=== PATIENT | male | born 1955 | race Caucasian/White ===

== ENCOUNTER 2018-10-07 10:11 | Inpatient (IN) | payer MEDICAID ==
[~2018-10-07] VITALS: Ht 172.7 cm; Wt 72.7 kg
[2018-10-07] VITALS (8 sets, daily range): BP systolic 101–139; BP diastolic 67–89
[2018-10-07 10:59] LABS: BASOPHILS % (AUTO) 0.5 % (0-1); EOSINOPHILS % (AUTO) 0.6 % (0-6); HEMATOCRIT 41.8 % (42.0-52.0); HEMOGLOBIN 14.2 g/dl (14.0-17.9); LYMPHOCYTES % (AUTO) 19.9 % (21-51); MEAN CORPUSCULAR HEMOGLOBIN 32.1 PG (27.0-31.0); MEAN CORPUSCULAR HGB CONC 34.1 g/dL (33.0-36.5); MEAN CORPUSCULAR VOLUME 94.1 FL (78-98); MEAN PLATELET VOLUME 7.9 FL (7.4-10.4); MONOCYTES # (AUTO) 0.5 X10'3 (0-0.9); MONOCYTES % (AUTO) 9.6 % (2-12); NEUTROPHILS # (AUTO) 3.5 X10'3 (1.8-7.7); NEUTROPHILS % (AUTO) 69.4 % (42-75); PLATELET COUNT 145 X10'3 (140-440); RED BLOOD COUNT 4.44 X10'6 (4.70-6.10); RED CELL DISTRIBUTION WIDTH 12.8 % (11.5-14.5); WHITE BLOOD COUNT 5.1 X10'3 (4.5-11.0)
[2018-10-07 11:13] LABS: ALANINE AMINOTRANSFERASE 21 U/L (12-78); ALBUMIN 3.4 G/DL (3.4-5.0); ALBUMIN/GLOBULIN RATIO 1.1 (1.1-1.5); ALKALINE PHOSPHATASE 63 IU/L (46-116); ANION GAP 5 (8-16); ASPARTATE AMINO TRANSFERASE 11 U/L (10-37); BILIRUBIN,TOTAL 0.8 MG/DL (0.1-1.0); BLOOD UREA NITROGEN 7 MG/DL (7-18); BUN/CREATININE RATIO 7.1 (5.4-32.0); CALCIUM 8.8 MG/DL (8.5-10.1); CHLORIDE 103 MMOL/L (99-107); CREATININE 0.98 MG/DL (0.60-1.10); GLUCOSE 109 MG/DL (70-104); POTASSIUM 3.7 MMOL/L (3.5-5.1); SODIUM 138 MMOL/L (135-145); TOTAL CARBON DIOXIDE 30.1 MMOL/L (24-32); TOTAL PROTEIN 6.5 G/DL (6.4-8.2); eGFR 77 ML/MIN
[2018-10-07 11:14] LABS: CREATINE KINASE 58 U/L (39-308)
[2018-10-07 11:19] LABS: PARTIAL THROMBOPLASTIN TIME 27 SECONDS (22-32)
[2018-10-07 11:44] LABS: CLARITY,URINE CLEAR (Clear); COLOR,URINE YELLOW (Yellow); GLUCOSE, URINE NEGATIVE (Neg); KETONES,URINE NEGATIVE (Neg); LEUKOCYTE ESTERASE ,URINE NEGATIVE (Neg); NITRITES, URINE NEGATIVE (Neg); OCCULT BLOOD,URINE NEGATIVE (Neg); PH,URINE 5.5 (4.8-8.0); PROTEIN,URINE NEGATIVE (Neg); UROBILINOGEN,URINE 0.2 E.U/dL (0.2-1.0)
[2018-10-07 11:45] LABS: UA COLLECTION TYPE CLN CATCH MIDSTREAM
--- NOTE | 2018-10-07 12:11 | NUR ---
CALLED POISON CONTROL AND SPOKE WITH CONCHITA. INFORMED POISON CONTROL OF PTS BITE FROM [facility] YESTERDAY AM AND RECEIVED RECOMMENDATIONS PT TO RECEIVE ANTI-VENOM FOR RATTLE SNAKE BITE BASED ON PTS SWELLING. OTHER RECOMMENDATIONS INCLUDED ADMISSION FOR 24 HOURS, MONITORING CO-AGS Q6 HOURS AND HOURLY MEASUREMENTS OF AFFECTED EXTREMITIY.
[2018-10-07] MEDS ORDERED: NO HOME MEDS (12:25)
[2018-10-07] MEDS ORDERED: potassium Cl 20 mEq SR tablet PO PRN (12:40)
[2018-10-07] MEDS ORDERED: morphine 4 MG/ML inj SYRINge IV PRN (12:40)
[2018-10-07] MEDS ORDERED: acetaminophen 325mg tablet PO PRN ×2 (12:40)
[2018-10-07] MEDS ORDERED: potassium CL 10mEq/100ml bag 100 ML IV PRN ×2 (12:40)
[2018-10-07] MEDS ORDERED: morphine 2 MG/ML inj. syringe IV PRN (12:40)
[2018-10-07] MEDS ORDERED: magnesium hydroxide 30ml (MOM) UD suspension PO PRN (12:40)
[2018-10-07] MEDS ORDERED: ondansetron/PF 4mg/2ml inj IV PRN (12:40)
[2018-10-07] MEDS ORDERED: antivenin, crotalidae fab inj 2 VIAL in normal saline 250ml IV soln 250 ML IV ONE ×4 (12:45)
--- NOTE | 2018-10-07 12:56 | NUR ---
PHARMACY CALLED, ACCORDION MAKER-CAITLIN IN PROCESS OF BEING MADE.
[2018-10-07] MEDS ORDERED: antivenin, crotalidae fab inj 4 VIAL in normal saline 250ml IV soln 250 ML IV SCH ×2 (13:00)
--- NOTE | 2018-10-07 13:21 | NUR ---
RELIEVING RN FOR LUNCH, PT IS RESTING QUIETLY ON GURNEY, RESP EVEN AND UNLABORED, SKIN P/W/D, SWELLING TO LEFT 2ND DIGIT, WAITING FOR COFAB FROM PHARMACY, WAITING FOR BED ASSIGNMENT, FAMILY AT BEDSIDE
--- NOTE | 2018-10-07 13:37 | NUR ---
ANTIVENIN STARTED, IV TO RT FOREARM IS PATENT AND CLEAR
[2018-10-07] MEDS: normal saline 1000ml 1,000 ML IV SCH (13:45)
[2018-10-07] MEDS ORDERED: OMEP40CA13 PO (16:36)
--- NOTE | 2018-10-07 18:30 | NUR ---
Patient in room ICU 2045. I have received report from SOBEIDA Negrete and had the opportunity to ask questions and assume patient care.
--- NOTE | 2018-10-07 23:42 | NUR ---
Updated poison control on patient's condition. It was recommended to check coagulation values every 2 to 6 hours. will check now and will notify poison control of any abnormal values or changes in the patient's condition.
[2018-10-08] VITALS (13 sets, daily range): BP systolic 109–132; BP diastolic 63–82
[2018-10-08 01:13] LABS: PARTIAL THROMBOPLASTIN TIME 27 SECONDS (22-32)
--- NOTE | 2018-10-08 01:50 | NUR ---
Forearm measurement this hour was 27.3cm and index finger was 8.7cm
[2018-10-08] MEDS: normal saline 1000ml 1,000 ML IV SCH ×2 (01:58→13:47)
[2018-10-08 04:42] LABS: BASOPHILS % (AUTO) 1.1 % (0-1); EOSINOPHILS # (AUTO) 0.1 X10'3 (0-0.9); EOSINOPHILS % (AUTO) 3.1 % (0-6); HEMATOCRIT 40.3 % (42.0-52.0); HEMOGLOBIN 13.6 g/dl (14.0-17.9); LYMPHOCYTES % (AUTO) 25.2 % (21-51); MEAN CORPUSCULAR HEMOGLOBIN 32.2 PG (27.0-31.0); MEAN CORPUSCULAR HGB CONC 33.8 g/dL (33.0-36.5); MEAN CORPUSCULAR VOLUME 95.2 FL (78-98); MEAN PLATELET VOLUME 8.4 FL (7.4-10.4); MONOCYTES # (AUTO) 0.4 X10'3 (0-0.9); MONOCYTES % (AUTO) 10.2 % (2-12); NEUTROPHILS # (AUTO) 2.5 X10'3 (1.8-7.7); NEUTROPHILS % (AUTO) 60.4 % (42-75); PLATELET COUNT 144 X10'3 (140-440); RED BLOOD COUNT 4.23 X10'6 (4.70-6.10); RED CELL DISTRIBUTION WIDTH 12.8 % (11.5-14.5); WHITE BLOOD COUNT 4.2 X10'3 (4.5-11.0)
[2018-10-08 04:50] LABS: ALANINE AMINOTRANSFERASE 18 U/L (12-78); ALBUMIN 2.8 G/DL (3.4-5.0); ALBUMIN/GLOBULIN RATIO 0.9 (1.1-1.5); ALKALINE PHOSPHATASE 57 IU/L (46-116); ANION GAP 8 (8-16); ASPARTATE AMINO TRANSFERASE 13 U/L (10-37); BILIRUBIN,TOTAL 0.5 MG/DL (0.1-1.0); BLOOD UREA NITROGEN 10 MG/DL (7-18); BUN/CREATININE RATIO 11.6 (5.4-32.0); CALCIUM 8.1 MG/DL (8.5-10.1); CHLORIDE 108 MMOL/L (99-107); CREATININE 0.86 MG/DL (0.60-1.10); GLUCOSE 91 MG/DL (70-104); MAGNESIUM 2.1 MG/DL (1.5-2.4); PHOSPHORUS 2.9 MG/DL (2.3-4.5); POTASSIUM 3.2 MMOL/L (3.5-5.1); SODIUM 142 MMOL/L (135-145); TOTAL CARBON DIOXIDE 25.7 MMOL/L (24-32); TOTAL PROTEIN 5.8 G/DL (6.4-8.2); eGFR 90 ML/MIN
--- NOTE | 2018-10-08 05:15 | NUR ---
Arm measurement was 27.4 this hour and finger was 8.5
[2018-10-08] MEDS: potassium Cl 20 mEq SR tablet PO PRN ×3 (05:21→20:22)
--- NOTE | 2018-10-08 06:05 | NUR ---
I have reviewed and agree with all medications administered and interventions performed by Orientteresa(SOBEIDA Sweet).
--- NOTE | 2018-10-08 06:24 | NUR ---
Problems reprioritized. Patient report given, questions answered & plan of care reviewed with SOBEIDA Philip.
--- NOTE | 2018-10-08 06:27 | NUR ---
Patient in room [facility]. I have received report from SOBEIDA Webb and had the opportunity to ask questions and assume patient care.
--- NOTE | 2018-10-08 06:27 | NUR ---
Problems reprioritized. Patient report given, questions answered & plan of care reviewed with SOBEIDA Perez.
[2018-10-08 07:30] LABS: PARTIAL THROMBOPLASTIN TIME 27 SECONDS (22-32)
[2018-10-08] MEDS: enoxaparin 40mg/0.4ml syringe SUBCUT SCH (07:30)
--- NOTE | 2018-10-08 08:19 | NUR ---
Poison control called re pt hand and arm. Suggested Q6H PTT, PT, INR & fibrogen, monitoring till 10/08/18 @ 1800, tetnus booster & monitoring arm circumference. notified.
[2018-10-08] MEDS ORDERED: TETanus/Pertussis (Acell)/Diphther VAC/PF (Tdap-Adult) 0.5ml syringe IMVAC ONE (11:05)
--- NOTE | 2018-10-08 12:48 | NUR ---
Transporting pt to [facility]. Report given to SOBEIDA Schaffer on surgical. Pt transported with belongings and chart.
[2018-10-08 13:06] LABS: PARTIAL THROMBOPLASTIN TIME 28 SECONDS (22-32)
--- NOTE | 2018-10-08 16:36 | NUR ---
Urine sample already collected. Addendum: 10/08/18 at 1639 by Karime Montoya RN Amended: Links added.
--- NOTE | 2018-10-08 18:35 | NUR ---
Pt. comfortable in bed. Finger looks to have some slight increase in swelling and weeping. Gave report to Marleni VIDALES.
--- NOTE | 2018-10-08 18:36 | NUR ---
Patient in room [facility]. I have received report from Karime VIDALES and had the opportunity to ask questions and assume patient care.
--- NOTE | 2018-10-08 19:41 | NUR ---
Andrei from Poison Control called @ 1932. Stated that because swelling is down and coags are remaining stable and WNL that they feel comfortable signing off. Recommend 3 day follow up and then 1 week follow up after that. Make sure that pt understands the risks of bleeding, tell him to avoid sports, falls, ASA, IBU and anything that can cause injury or bleeding. Recommends OTC tylenol for pain.
[2018-10-08 20:20] LABS: PARTIAL THROMBOPLASTIN TIME 27 SECONDS (22-32)
[2018-10-08] MEDS: HYDROcodone/acetaminophen 10/325mg tab PO PRN (20:22)
[2018-10-09] VITALS: BP 101/65
[2018-10-09] MEDS: HYDROcodone/acetaminophen 10/325mg tab PO PRN (03:03)
[2018-10-09] MEDS: normal saline 1000ml 1,000 ML IV SCH (03:04)
[2018-10-09 04:44] LABS: HEMOGLOBIN 12.8 g/dl (14.0-17.9)
[2018-10-09 04:47] LABS: BASOPHILS % (AUTO) 1.2 % (0-1); EOSINOPHILS # (AUTO) 0.2 X10'3 (0-0.9); EOSINOPHILS % (AUTO) 5.8 % (0-6); HEMATOCRIT 37.5 % (42.0-52.0); LYMPHOCYTES # (AUTO) 1.5 X10'3 (1.1-4.8); LYMPHOCYTES % (AUTO) 39.5 % (21-51); MEAN CORPUSCULAR HEMOGLOBIN 32.7 PG (27.0-31.0); MEAN CORPUSCULAR HGB CONC 34.1 g/dL (33.0-36.5); MEAN CORPUSCULAR VOLUME 95.9 FL (78-98); MEAN PLATELET VOLUME 8.6 FL (7.4-10.4); MONOCYTES # (AUTO) 0.4 X10'3 (0-0.9); NEUTROPHILS # (AUTO) 1.7 X10'3 (1.8-7.7); NEUTROPHILS % (AUTO) 43.5 % (42-75); PLATELET COUNT 154 X10'3 (140-440); RED BLOOD COUNT 3.91 X10'6 (4.70-6.10); RED CELL DISTRIBUTION WIDTH 13.2 % (11.5-14.5); WHITE BLOOD COUNT 3.9 X10'3 (4.5-11.0)
[2018-10-09 05:02] LABS: PARTIAL THROMBOPLASTIN TIME 27 SECONDS (22-32)
[2018-10-09 05:10] LABS: ALANINE AMINOTRANSFERASE 23 U/L (12-78); ALBUMIN 2.5 G/DL (3.4-5.0); ALBUMIN/GLOBULIN RATIO 0.9 (1.1-1.5); ALKALINE PHOSPHATASE 71 IU/L (46-116); ANION GAP 5 (8-16); ASPARTATE AMINO TRANSFERASE 15 U/L (10-37); BILIRUBIN,TOTAL 0.3 MG/DL (0.1-1.0); BLOOD UREA NITROGEN 18 MG/DL (7-18); BUN/CREATININE RATIO 20.5 (5.4-32.0); CALCIUM 8.4 MG/DL (8.5-10.1); CHLORIDE 110 MMOL/L (99-107); CREATININE 0.88 MG/DL (0.60-1.10); GLUCOSE 95 MG/DL (70-104); MAGNESIUM 1.9 MG/DL (1.5-2.4); PHOSPHORUS 3.5 MG/DL (2.3-4.5); POTASSIUM 4.1 MMOL/L (3.5-5.1); SODIUM 141 MMOL/L (135-145); TOTAL CARBON DIOXIDE 26.4 MMOL/L (24-32); TOTAL PROTEIN 5.4 G/DL (6.4-8.2); eGFR 87 ML/MIN
--- NOTE | 2018-10-09 06:39 | NUR ---
Problems reprioritized. Patient report given, questions answered & plan of care reviewed with Ruth VIDALES.
--- NOTE | 2018-10-09 06:42 | NUR ---
Patient in room [facility]. I have received report from pedro singh and had the opportunity to ask questions and assume patient care.
[2018-10-09 07:59] VITALS: BP 116/74
[2018-10-09] MEDS: enoxaparin 40mg/0.4ml syringe SUBCUT SCH (08:01)
[2018-10-09 11:00] VITALS: BP 122/73
--- NOTE | 2018-10-09 17:15 | NUR ---
patient seen by Dr gutierres is for discharge. wound team called for patients appointment on sunday. they stated they will confirm this with Dr ortiz but will call the patients caregiver elysia. [phone]. patient given wound supplies, and all DC instructions given to patient and caregiver. DC home via private car with caregiver. 1715hrs.
== END 2018-10-09 17:07 | disposition home or self-care (01) | DRG 816 ==
LOC: ER 10:12 → ICU 2S 16:03 → SUR 3N 10-08 13:00
PROVIDERS: ADMIT Internal Medicine Critical Care Medicine; ATTEND Internal Medicine Critical Care Medicine
DX: T63.011A Toxic effect of rattlesnake venom, accidental (unintentional), initial encounter (principal); H54.7 Unspecified visual loss; I99.8 Other disorder of circulatory system; Y92.89 Other specified places as the place of occurrence of the external cause; Z79.899 Other long term (current) drug therapy
CPT/HCPCS: 36415; 80053; 81003; 82550; 82948; 83735; 84100; 85025; 85384; 85610; 85730; 87081; 96365; 96366; 99285; G0378; J1650; J7030; J7050

== ENCOUNTER 2018-10-11 09:30 | Day surgery (SDC) | payer MEDICAID ==
[~2018-10-11 09:30] MED LIST: OMEP40CA13 PO
[2018-10-11] MEDS ORDERED: LIDOcaine 2% 5ml jelly ONE (10:03)
== END 2018-10-11 11:30 | disposition home or self-care (01) ==
LOC: WOUND CARE 09:30
PROVIDERS: ATTEND Surgery
DX: T63.011A Toxic effect of rattlesnake venom, accidental (unintentional), initial encounter (principal); S61.251A Open bite of left index finger without damage to nail, initial encounter; H54.7 Unspecified visual loss; Z79.899 Other long term (current) drug therapy; Y92.89 Other specified places as the place of occurrence of the external cause; Y93.89 Activity, other specified; Y99.8 Other external cause status
CPT/HCPCS: 97597; A4663; A6021; A6154

== ENCOUNTER 2018-10-18 08:55 | Outpatient (CLI) | payer MEDICAID ==
[2018-10-18] MEDS ORDERED: LIDOcaine 2% 5ml jelly ONE (09:24)
== END 2018-10-18 10:10 | disposition home or self-care (01) ==
LOC: WOUND CARE 08:55 → EDSTATUS 09:00 → WOUND CARE 10:10
PROVIDERS: ATTEND Surgery
DX: T63.011D Toxic effect of rattlesnake venom, accidental (unintentional), subsequent encounter (principal); S61.251D Open bite of left index finger without damage to nail, subsequent encounter; H54.7 Unspecified visual loss; Z79.899 Other long term (current) drug therapy
CPT/HCPCS: A4663; G0463